=== PATIENT | female | born 1975 | race Caucasian/White ===

== ENCOUNTER → 2016-12-07 | Outpatient (CLI) | payer OTHER ==
--- NOTE | 2016-12-08 10:19 | MRI ---
HISTORY: Degenerative joint disease, chronic low back pain Study: MRI lumbar spine without contrast Comparison: None Technique: Multiplanar multi-sequence MRI of the lumbar spine was obtained. Sagittal T1, sagittal T 2, and stir weighted images, axial T1, and axial T2 images were obtained. Findings: The lumbar spine demonstrates normal alignment with the expected signal characteristics of the bone marrow. There is some benign hemangiomatous change in L3. The conus of the cord terminates normally . T12 -- L1: No evidence for compressive disc disease. The neural foramina are patent. The joints are normal. L1 -- L2: No evidence for compressive disc disease. The neural foramina are patent. The joints are n ormal. L2 -- L3: No evidence for compressive disc disease. The neural foramina are patent. The joints are n ormal. L3 -- L4: There is broad-based disc bulging causes minimal thecal sac effacement and contributes bob aterally to minimal lateral recess narrowing. L4 -- L5: Broad-based disk bulging effaces the thecal sac and contributes along with ligamentous hyp ertrophy, facet arthropathy and pedicular shortening to a mild spinal stenosis with mild lateral rec ess narrowing bilaterally. L5 -- S1: No evidence for compressive disc disease. The neural foramina are patent. The joints are n ormal. IMPRESSION: As above Reported By:
== END ==
LOC: RAD 09:35
PROVIDERS: ATTEND Specialist
DX: M47.816 Spondylosis without myelopathy or radiculopathy, lumbar region (principal)
CPT/HCPCS: 72148

== ENCOUNTER 2017-01-24 11:35 | Day surgery (SDC) | payer OTHER ==
[2017-01-24] MEDS ORDERED: KENALOG INJ 40 MG ONE (12:34)
[2017-01-24] MEDS ORDERED: MARCAINE 0.5% ONE (12:34)
[2017-01-24] MEDS ORDERED: MARCAINE 0.25% INJ ONE (12:34)
[2017-01-24] MEDS ORDERED: XYLOCAINE 1 % (PLAIN) ONE (12:34)
[2017-01-24] MEDS ORDERED: MARCAINE 0.25% WITH EPI IJ ONE (12:34)
--- NOTE | 2017-01-24 12:34 | DR.UPDATE ---
H&P Update History and Physical Update: History and Physical reviewed and patient examined. Changes noted: NO Yes with the following:Agree with Dr Munson's H&P. Will perform epidural steroid injection L4-5 as this is consistent with patients c/o bilateral radiculopathy symptoms.
[2017-01-24 13:11] VITALS: BP 176/90
== END 2017-01-24 13:14 | disposition home or self-care (01) | DRG 552 ==
LOC: SURG1 11:35
PROVIDERS: ATTEND Specialist
PROC: 3E0R33Z Introduction of Anti-inflammatory into Spinal Canal, Percutaneous Approach (ICD-10-PCS; 2017-01-24)
PROC: B01BZZZ Fluoroscopy of Spinal Cord (ICD-10-PCS; 2017-01-24)
PROC: 3E0R3BZ Introduction of Anesthetic Agent into Spinal Canal, Percutaneous Approach (ICD-10-PCS; principal; 2017-01-24 12:00)
DX: M51.86 Other intervertebral disc disorders, lumbar region (principal)
CPT/HCPCS: 62323; 76000; S0020; J2001; J3301